=== PATIENT | female | born 1975 ===

== ENCOUNTER 2016-10-31 18:41 | Emergency (ER) | payer BC ==
[2016-10-31] MEDS: IPRATROPIUM/ALBUTEROL (0.5MG/3MG) NEB INH ONE (18:45)
[2016-10-31] MEDS: ALBUTEROL SULFATE (0.083%) 2.5 MG/3 ML NEB INH ONE (18:45)
--- NOTE | 2016-10-31 18:56 | Emergency Department Record ---
History of Present Illness - General Chief Complaint: Asthma Stated Complaint: ASTHMA Time Seen by Provider: 10/31/16 18:55 Source: Patient Mode of Arrival: Ambulatory Limitations: No limitations - History of Present Illness Initial Comments: The patient is here due to having an asthma attack today. She has a hx of mild asthma and has never been admitted to the hospital for asthma. For the last day has had a cough and congestion and mild wheezing. She denies any CP, back pain or AP but is coughing up yellow sputum. The patient has been using her inhaller at home but feels she needs some oral steroids. MD Complaint: "Asthma attack", Wheezing Onset/Timin -: Days(s) Asthma History: Adult onset Severity: Moderate Context: None known Associated Symptoms: Dry cough Treatment Prior to Arrival Comment:: Albuterol - Related Data Current Asthma Therapy: Other Home Medications Medication Instructions Recorded Confirmed Last Taken Levothyroxine Sodium 200 mcg PO DAILY #30 06/19/16 10/31/16 10/31/16 Omeprazole 40 mg PO DAILY #30 06/19/16 10/31/16 10/31/16 Previous Rx's Medication Instructions Recorded Albuterol Sulfate [Proair Hfa] 2 puff IH QID PRN #1 inhaler 10/31/16 Azithromycin [Zithromax] 250 mg PO ASDIR #6 tab 10/31/16 Prednisone [Prednisone 20Mg] 40 mg PO DAILY #8 tab 10/31/16 Allergies Allergy/AdvReac Type Severity Reaction Status Date / Time morphine Allergy Severe ANAPHYLAXIS Verified 10/31/16 18:53 acetaminophen [From [place]] AdvReac Severe VOMITING Verified 10/31/16 18:54 codeine AdvReac Severe VOMITING Verified 10/31/16 18:54 hydrocodone bitartrate AdvReac Severe VOMITING Verified 10/31/16 18:54 [From [place]] Travel Screening - Travel/Exposure Within Last 30 Days Have you traveled within the last 30 days?: No Review of Systems Constitutional: Denies: Chills, Fever, Malaise Eyes: Denies: Eye discharge ENT: Reports: Congestion Respiratory: Reports: Cough, Wheezes Cardiovascular: Denies: Arrhythmia, Chest pain Past Medical History - SOCIAL HISTORY Smoking Status: Current every day smoker Alcohol Use: None Drug Use: None - RESPIRATORY Hx Respiratory Disorders: Yes Hx Asthma: Yes - CARDIOVASCULAR Hx Cardio Disorders: No - NEURO Hx Neuro Disorders: No - GI Hx GI Disorders: Yes Hx Reflux: Yes - Hx Genitourinary Disorders: No - ENDOCRINE Hx Endocrine Disorders: Yes Hx Thyroid Disease: Yes (Hypothyroid) - MUSCULOSKELETAL Hx Musculoskeletal Disorders: No - PSYCH Hx Psych Problems: No - HEMATOLOGY/ONCOLOGY Hx Hematology/Oncology Disorders: No Family Medical History Any Significant Family History?: No Physical Exam - General General Appearance: Alert, Oriented x3, Cooperative, No acute distress (The patient is smiling and speaking in full sentences with no KWABENA or SOB.) - Head Head exam: Normal inspection - Eye Eye exam: Normal appearance, PERRL - ENT Throat exam: Normal inspection. negative: Tonsillar erythema, Tonsillar exudate - Neck Neck exam: Normal inspection, Full ROM. negative: Tenderness - Respiratory Respiratory exam: Normal lung sounds bilaterally (The patient has already had a duoneb and her lungs are now clear.). negative: Accessory muscle use, Chest wall tenderness, Decreased breath sounds, Respiratory distress, Rhonchi, Stridor , Wheezes - Cardiovascular Cardiovascular Exam: Regular rate, Normal rhythm, Normal heart sounds - GI/Abdominal GI/Abdominal exam: Soft, Normal bowel sounds. negative: Tenderness - Extremities Extremities exam: Normal inspection, Full ROM, Normal capillary refill. negative: Tenderness - Neurological Neurological exam: Alert, Normal gait. negative: Abnormal gait, Motor sensory deficit Course Vital Signs 10/31/16 18:47 Temperature 97.6 F Pulse Rate 94 H Respiratory 18 Rate Blood Pressure 135/97 Pulse Ox 96 - Reevaluation(s) Reevaluation #1: The patient is doing much better at this time. She denies any pain, SOB or KWABENA. On exam her lungs are clear with no wheezes, retractions or dyspnea. She feels ready for home. 10/31/16 19:47 Medical Decision Making - Data Complexity MDM Data: X-Ray Ordered and/or Reviewed - Radiology Data Radiology results: Report reviewed (CXR: Neg) Disposition Disposition: Discharge Clinical Impression: Asthmatic bronchitis Qualifiers: Asthma severity: mild intermittent Asthma complication type: with acute exacerbation Qualified Code(s): J45.21 - Mild intermittent asthma with (acute) exacerbation Disposition: Home, Self-Care Condition: (1) Good Instructions: Asthma (ED) Additional Instructions: Please continue your inhaller and take the Prednisone and Zithromax as directed. Please see your PCP if not better in 3 days. Return to the ER if worse. Prescriptions: Prednisone [Prednisone 20Mg] 40 mg PO DAILY #8 tab Albuterol Sulfate [Proair Hfa] 2 puff IH QID PRN #1 inhaler PRN Reason: Cough And Difficulty Breathing Azithromycin [Zithromax] 250 mg PO ASDIR #6 tab Forms: Patient Portal Access Time of Disposition: 19:43
[2016-10-31] MEDS: METHYLPREDNISOLONE PF 125MG/VIAL IM ONE (19:10)
--- NOTE | 2016-11-06 14:19 | RADIOLOGY REPORT ---
EXAM: CHEST, TWO VIEWS HISTORY: COUGH. TECHNIQUE: PA and lateral views of the chest were obtained. Comparison: Two view chest 06/19/16. FINDINGS: The heart size is normal. The lungs appear expanded with no acute infiltrate seen. No pleural effusion or pneumothorax evident. IMPRESSION: THE CHEST APPEARS NEGATIVE. JOB NUMBER: [id number] MTDD
== END 2016-10-31 19:53 | disposition home or self-care (01) ==
LOC: ER 18:41
DX: J45.21 Mild intermittent asthma with (acute) exacerbation (principal); F17.210 Nicotine dependence, cigarettes, uncomplicated
CPT/HCPCS: 71020; 94640; 96372; 99283; 99284; J2930; J7613

== ENCOUNTER 2019-05-11 19:12 | Emergency (ER) | payer BC ==
[2019-05-11] MEDS ORDERED: METHYLPREDNISOLONE PF 125MG/VIAL IVP ONE (19:34)
[2019-05-11] MEDS ORDERED: IPRATROPIUM/ALBUTEROL (0.5MG/3MG) NEB INH ONE (19:36)
--- NOTE | 2019-05-11 19:44 | Emergency Department Record ---
History of Present Illness - General Chief Complaint: Difficulty Breathing Stated Complaint: KWABENA Time Seen by Provider: 05/11/19 19:20 Source: Patient Mode of Arrival: Wheelchair Limitations: No limitations - History of Present Illness Initial Comments: pt got laryngitis yesterday then became sob today w yellow productive cough and wheezing. she went to [facility] and they sent her here because she didnt get better w breathing treatments. she has no fever. she does have a hx of thrombocytopenia the last 7 months MD Complaint: "Asthma attack", Cough, Shortness of breath Onset/Timin -: Minutes(s) Severity: Mild Consistency: Getting worse Improves With: Nothing Known History Of: Asthma Context: Recent URI Associated Symptoms: Cough, Sputum production Treatments Prior to Arrival: Bronchodilator Treatment Prior to Arrival Comment:: breathing tx at [facility]. - Related Data Home Medications Medication Instructions Recorded Confirmed Last Taken Baclofen 10 mg PO TID PRN 05/11/19 05/11/19 05/11/19 Ondansetron HCl [Zofran] 4 mg PO DAILY 05/11/19 05/11/19 05/11/19 Valacyclovir HCl [Valtrex] 1,000 mg PO DAILY 05/11/19 05/11/19 Unknown Previous Rx's Medication Instructions Recorded Albuterol Sulfate [Proair Hfa] 2 puff IH QID PRN #1 inhaler 10/31/16 Azithromycin [Zithromax] 250 mg PO DAILY #4 tab 05/11/19 Allergies Allergy/AdvReac Type Severity Reaction Status Date / Time morphine Allergy Severe ANAPHYLAXIS Unverified 05/11/19 18:57 acetaminophen [From [place]] AdvReac Severe VOMITING Unverified 05/11/19 18:57 codeine AdvReac Severe VOMITING Unverified 05/11/19 18:57 hydrocodone bitartrate AdvReac Severe VOMITING Unverified 05/11/19 18:57 [From [place]] Travel Screening - Travel/Exposure Within Last 30 Days Have you traveled within the last 30 days?: No - Travel/Exposure Within Last Year Have you traveled outside the [place] in the last year?: No - Additonal Travel Details Have you been exposed to anyone with a communicable illness?: No Review of Systems Reviewed: No additional complaints except as noted below Constitutional: Reports: As per HPI. Denies: Chills, Fever, Malaise, Night sweats, Weakness, Weight change Eyes: Reports: As per HPI. Denies: Eye discharge, Eye pain, Photophobia, Vision change ENT: Reports: As per HPI. Denies: Congestion, Dental pain, Ear pain, Epistaxis, Hearing loss, Throat pain Respiratory: Reports: As per HPI, Cough, Wheezes. Denies: Dyspnea, Hemoptysis, Stridor Cardiovascular: Reports: As per HPI. Denies: Arrhythmia, Chest pain, Dyspnea on exertion, Edema, Murmurs, Orthopnea, Palpitations, Paroxysmal nocturnal dyspnea, Rheumatic Fever, Syncope Endocrine: Reports: As per HPI. Denies: Fatigue, Heat or cold intolerance, Polydipsia, Polyuria Gastrointestinal: Reports: As per HPI. Denies: Abdominal pain, Constipation, Diarrhea, Hematemesis, Hematochezia, Melena, Nausea, Vomiting Genitourinary: Reports: As per HPI. Denies: Abnormal menses, Discharge, Dyspareunia, Dysuria, Frequency, Hematuria, Incontinence, Retention, Urgency Musculoskeletal: Reports: As per HPI. Denies: Arthralgia, Back pain, Gout, Joint swelling, Myalgia, Neck pain Skin: Reports: As per HPI. Denies: Bruising, Change in color, Change in hair/nails, Lesions, Pruritus, Rash Neurological: Reports: As per HPI. Denies: Abnormal gait, Confusion, Headache, Numbness, Paresthesias, Seizure, Tingling, Tremors, Vertigo, Weakness Psychiatric: Reports: As per HPI. Denies: Anxiety, Auditory hallucinations, Depression, Homicidal thoughts, Suicidal thoughts, Visual hallucinations Hematological/Lymphatic: Reports: As per HPI. Denies: Anemia, Blood Clots, Easy bleeding, Easy bruising, Swollen glands Past Medical History - SOCIAL HISTORY Smoking Status: Current every day smoker Alcohol Use: None Drug Use: None - RESPIRATORY Hx Respiratory Disorders: Yes Hx Asthma: Yes - CARDIOVASCULAR Hx Cardio Disorders: No - NEURO Hx Neuro Disorders: No - GI Hx GI Disorders: Yes Hx Reflux: Yes Comment:: ITP - Hx Genitourinary Disorders: No - ENDOCRINE Hx Endocrine Disorders: Yes Hx Thyroid Disease: Yes (Hypothyroid) - MUSCULOSKELETAL Hx Musculoskeletal Disorders: Yes - PSYCH Hx Psych Problems: No - HEMATOLOGY/ONCOLOGY Hx Hematology/Oncology Disorders: Yes Hx Bruising: Yes (Factor V) Comment:: Chronic thrombocytopenia 7-mos. Family Medical History Any Significant Family History?: No Physical Exam - General General Appearance: Alert, Oriented x3, Cooperative, Mild distress - Head Head exam: Normal inspection - Eye Eye exam: Normal appearance, PERRL, EOMI Pupils: Normal accommodation - ENT ENT exam: Normal exam, Mucous membranes moist, Normal external ear exam, Normal orophraynx Ear exam: Normal external inspection. negative: External canal tenderness Nasal Exam: Normal inspection. negative: Discharge, Sinus tenderness Mouth exam: Normal external inspection, Tongue normal Teeth exam: Normal inspection. negative: Dental caries Throat exam: Normal inspection. negative: Tonsillar erythema, Tonsillar exudate - Neck Neck exam: Normal inspection, Full ROM. negative: Tenderness - Respiratory Respiratory exam: Wheezes (mild). negative: Respiratory distress - Cardiovascular Cardiovascular Exam: Normal rhythm, Normal heart sounds, Tachycardia - GI/Abdominal GI/Abdominal exam: Soft, Normal bowel sounds. negative: Tenderness - Rectal Rectal exam: Deferred - exam: Deferred - Extremities Extremities exam: Normal inspection, Full ROM, Normal capillary refill. negative: Tenderness - Back Back exam: Reports: Normal inspection, Full ROM. Denies: Muscle spasm, Rash noted, Tenderness - Neurological Neurological exam: Alert, CN II-XII intact, Normal gait, Oriented X3 - Psychiatric Psychiatric exam: Normal affect, Normal mood - Skin Skin exam: Dry, Intact, Normal color, Warm Course Vital Signs 05/11/19 19:14 Temperature 98.5 F Pulse Rate 105 H Respiratory 24 Rate Blood Pressure 126/99 Pulse Ox 100 - Reevaluation(s) Reevaluation #1: 05/11/19 20:36 pt feels better. Reevaluation #2: 05/11/19 20:40 pt only occasionally takes zofran Medical Decision Making - Lab Data Result diagrams: 05/11/19 19:35 Disposition Disposition: Discharge Clinical Impression: Asthmatic bronchitis Qualifiers: Asthma severity: mild Asthma persistence: intermittent Asthma complication type: with acute exacerbation Qualified Code(s): J45.21 - Mild intermittent asthma with (acute) exacerbation Disposition: Home, Self-Care Condition: (1) Good Instructions: Asthma (ED), Acute Bronchitis (ED) Additional Instructions: follow up with family doctor. return sooner if worse. do not take zofran while taking zithromax Prescriptions: Azithromycin [Zithromax] 250 mg PO DAILY #4 tab Forms: Patient Portal Access Quality - Quality Measures Quality Measures: N/A - Blood Pressure Screening Does Patient Have Any of the Following: No Blood Pressure Classification: Hypertensive Reading Systolic Measurement: 126 Diastolic Measurement: 99 Screening for High Blood Pressure: < Pre-Hypertensive BP, F/U Documented > [G8950] Pre-Hypertensive Follow-up Interventions: Follow-up with rescreen every year.
[2019-05-11 19:52] LABS: ABSOLUTE NEUTROPHIL COUNT 1.93; BASO % 0.8 % (0-6); EOS % 4.1 % (0-6); GRAN % 39.9 % (47-80); HEMATOCRIT 40.5 % (35.0-47.0); HEMOGLOBIN 13.3 gm/dl (11.6-16.0); LYMPH % 47.2 % (16-45); MEAN CELL VOLUME 98.5 fl (81-97); MEAN CORPUSCULAR HEMOGLOBIN 32.4 pg (27-33); MEAN CORPUSCULAR HGB CONC 32.8 g/dl (32-36); MEAN PLATELET VOLUME 11.3 fl (7.4-10.4); PLATELET COUNT 186 K/uL (130-400); RED BLOOD COUNT 4.11 M/uL (3.80-5.40); RED CELL DISTRIBUTION WIDTH 13.4 % (11.5-14.5); WHITE BLOOD COUNT W/O DIFF 4.9 K/uL (4.2-12.2)
[2019-05-11] MEDS ORDERED: AZITHROMYCIN 500 MG TABLET PO ONE (20:33)
== END 2019-05-11 21:17 | disposition home or self-care (01) ==
LOC: ER 19:12
DX: J45.21 Mild intermittent asthma with (acute) exacerbation (principal); R06.02 Shortness of breath; D69.6 Thrombocytopenia, unspecified; F17.210 Nicotine dependence, cigarettes, uncomplicated
CPT/HCPCS: 71046; 85025; 94640; 96374; 99284; J2930